=== PATIENT | male | born 1970 | race Caucasian/White ===

== ENCOUNTER → 2017-07-14 | Outpatient (CLI) | payer OTHER | LOC: LAB 09:28 | DX: Z00.00 Encounter for general adult medical examination without abnormal findings (principal); Z12.5 Encounter for screening for malignant neoplasm of prostate ==

== ENCOUNTER → 2019-07-18 | Outpatient (CLI) | payer OTHER ==
[2019-07-18 09:56] LABS: EOS # 0.2 (0.04-0.40); EOS % 3.4 % (0.0-4.0); HEMATOCRIT 43.5 % (42.0-52.0); HEMOGLOBIN 14.8 g/dL (13.5-18.0); MEAN CELL VOLUME 82 fl (78-100); MEAN CORPUSCULAR HEMOGLOBIN 28 pg (27-31); MEAN CORPUSCULAR HGB CONC 34 g/dL (33-37); MEAN PLATELET VOLUME 9.7 fl (7.4-10.4); MONO # 0.5 (0.20-0.80); NEU # 3.5 (1.40-6.50); PLATELET COUNT 207 K/mm3 (130-400); RED BLOOD COUNT 5.28 M/mm3 (4.20-5.60); RED CELL DISTRIBUTION WIDTH 13.9 % (11.5-14.5); WHITE BLOOD COUNT 6.2 K/mm3 (4.8-10.8)
[2019-07-18 10:04] LABS: ALBUMIN 4.3 g/dL (3.5-5.0); POTASSIUM 4.3 mmol/L (3.5-5.1); SODIUM 139 mmol/L (136-145)
[2019-07-18 10:05] LABS: CALCIUM 9.7 mg/dL (8.3-10.5)
[2019-07-18 10:06] LABS: GLUCOSE 130 mg/dL (75-110); TOTAL PROTEIN 7.1 g/dL (6.4-8.3)
[2019-07-18 10:07] LABS: CARBON DIOXIDE 25 mmol/L (22-29)
[2019-07-18 10:08] LABS: TOTAL BILIRUBIN 0.7 mg/dL (0.2-1.2)
[2019-07-18 10:12] LABS: AST-SGOT 23 U/L (5-34)
[2019-07-18 10:13] LABS: ALT/SGPT 35 U/L (0-55)
[2019-07-18 10:44] LABS: URINE APPEARANCE CLEAR; URINE BILIRUBIN NEGATIVE (NEGATIVE); URINE BLOOD 50 ery/uL (NEGATIVE); URINE COLOR YELLOW; URINE GLUCOSE NEGATIVE (NEGATIVE); URINE KETONE NEGATIVE (NEGATIVE); URINE LEUKOCYTE ESTERASE NEGATIVE (NEGATIVE); URINE MUCUS PRESENT (NOT PRESENT); URINE NITRATE NEGATIVE (NEGATIVE); URINE PROTEIN(semi-quant) TRACE mg/dL (NEGATIVE); URINE UROBILINOGEN NORMAL (NORMAL)
[2019-07-18 11:02] LABS: ERYTHROCYTE SEDIMENTATION RATE 3 mm/hr (0-15)
[2019-07-19 20:16] LABS: ANA SCREEN with REFLEX Negative (Negative)
== END ==
LOC: LAB 09:39
PROVIDERS: Physician Assistant
DX: Z12.5 Encounter for screening for malignant neoplasm of prostate (principal); E11.29 Type 2 diabetes mellitus with other diabetic kidney complication; E78.2 Mixed hyperlipidemia; G47.00 Insomnia, unspecified; M25.50 Pain in unspecified joint; M79.18 Myalgia, other site; R53.83 Other fatigue; K90.9 Intestinal malabsorption, unspecified

== ENCOUNTER → 2019-07-25 | Outpatient (CLI) | payer OTHER | LOC: LAB 14:45 | DX: K90.89 Other intestinal malabsorption (principal) ==

== ENCOUNTER → 2019-09-19 | Outpatient (CLI) | payer OTHER | LOC: LAB 11:44 | DX: K90.9 Intestinal malabsorption, unspecified (principal); E53.8 Deficiency of other specified B group vitamins ==

== ENCOUNTER → 2019-11-13 | Outpatient (CLI) | payer OTHER ==
[2019-11-13 16:34] LABS: ALBUMIN 4.2 g/dL (3.5-5.0)
[2019-11-13 16:36] LABS: CALCIUM 10.2 mg/dL (8.3-10.5)
[2019-11-13 16:39] LABS: TOTAL BILIRUBIN 0.7 mg/dL (0.2-1.2)
== END ==
LOC: LAB 16:07
PROVIDERS: Internal Medicine
DX: Z00.00 Encounter for general adult medical examination without abnormal findings (principal); K90.9 Intestinal malabsorption, unspecified; E55.9 Vitamin D deficiency, unspecified; E53.8 Deficiency of other specified B group vitamins

== ENCOUNTER → 2020-02-03 | Outpatient (CLI) | payer OTHER | LOC: LAB 10:07 | DX: Z00.00 Encounter for general adult medical examination without abnormal findings (principal); K90.9 Intestinal malabsorption, unspecified; E53.8 Deficiency of other specified B group vitamins; E55.9 Vitamin D deficiency, unspecified; E11.9 Type 2 diabetes mellitus without complications ==

== ENCOUNTER → 2020-03-09 | Outpatient (CLI) | payer OTHER | LOC: LAB 09:30 | DX: L82.1 Other seborrheic keratosis (principal) ==

== ENCOUNTER → 2020-08-21 | Outpatient (CLI) | payer BC ==
[2020-08-21 14:19] LABS: EOS # 0.1 (0.04-0.40); EOS % 2.3 % (0.0-4.0); HEMATOCRIT 38.3 % (42.0-52.0); HEMOGLOBIN 13.1 g/dL (13.5-18.0); LYMPH# 1.7 (1.50-4.00); MEAN CELL VOLUME 82 fl (78-100); MEAN CORPUSCULAR HEMOGLOBIN 28 pg (27-31); MEAN CORPUSCULAR HGB CONC 34 g/dL (33-37); MEAN PLATELET VOLUME 9.5 fl (7.4-10.4); MONO # 0.5 (0.20-0.80); NEU # 3.7 (1.40-6.50); PLATELET COUNT 187 K/mm3 (130-400); RED BLOOD COUNT 4.66 M/mm3 (4.20-5.60); RED CELL DISTRIBUTION WIDTH 13.3 % (11.5-14.5); WHITE BLOOD COUNT 6.1 K/mm3 (4.8-10.8)
[2020-08-21 14:26] LABS: ALBUMIN 4.4 g/dL (3.5-5.0)
[2020-08-21 14:27] LABS: CALCIUM 9.7 mg/dL (8.3-10.5)
[2020-08-21 14:28] LABS: TOTAL PROTEIN 6.9 g/dL (6.4-8.3)
[2020-08-21 14:30] LABS: TOTAL BILIRUBIN 0.8 mg/dL (0.2-1.2)
[2020-08-21 14:31] LABS: URINE APPEARANCE CLEAR; URINE COLOR YELLOW
[2020-08-21 14:32] LABS: URINE BILIRUBIN NEGATIVE (NEGATIVE); URINE BLOOD NEGATIVE (NEGATIVE); URINE GLUCOSE NEGATIVE (NEGATIVE); URINE KETONE NEGATIVE (NEGATIVE); URINE LEUKOCYTE ESTERASE NEGATIVE (NEGATIVE); URINE MUCUS PRESENT (NOT PRESENT); URINE NITRATE NEGATIVE (NEGATIVE); URINE PROTEIN(semi-quant) TRACE mg/dL (NEGATIVE); URINE UROBILINOGEN NORMAL (NORMAL)
[2020-08-21 15:16] LABS: ERYTHROCYTE SEDIMENTATION RATE 11 mm/hr (0-20)
[2020-08-21 22:21] LABS: TESTOSTERONE 387 ng/dL (221-716)
== END ==
LOC: LAB 14:06
PROVIDERS: Internal Medicine
DX: Z00.00 Encounter for general adult medical examination without abnormal findings (principal); Z12.5 Encounter for screening for malignant neoplasm of prostate; Z12.11 Encounter for screening for malignant neoplasm of colon; E53.8 Deficiency of other specified B group vitamins; E78.2 Mixed hyperlipidemia; M10.9 Gout, unspecified; K90.9 Intestinal malabsorption, unspecified; E11.29 Type 2 diabetes mellitus with other diabetic kidney complication

== ENCOUNTER → 2021-08-23 | Outpatient (CLI) | payer BC ==
[2021-08-23 17:00] LABS: BASO # 0.01 K/mm3 (0.02-0.10); EOS % 3.6 % (0.0-4.0); HEMATOCRIT 36.9 % (42.0-52.0); HEMOGLOBIN 12.7 g/dL (13.5-18.0); LYMPH# 2.13 K/mm3 (1.50-4.00); MEAN CELL VOLUME 84 fl (78-100); MEAN CORPUSCULAR HEMOGLOBIN 29 pg (27-31); MEAN CORPUSCULAR HGB CONC 34 g/dL (33-37); MEAN PLATELET VOLUME 9.1 fl (7.4-10.4); MONO # 0.41 K/mm3 (0.20-0.80); NEU # 2.81 K/mm3 (1.40-6.50); PLATELET COUNT 166 K/mm3 (130-400); RED BLOOD COUNT 4.38 M/mm3 (4.20-5.60); RED CELL DISTRIBUTION WIDTH 13.1 % (11.5-14.5); WHITE BLOOD COUNT 5.6 K/mm3 (4.8-10.8)
[2021-08-23 17:08] LABS: POTASSIUM 3.7 mmol/L (3.5-5.1)
[2021-08-23 17:09] LABS: CALCIUM 9.6 mg/dL (8.3-10.5)
[2021-08-23 17:10] LABS: TOTAL PROTEIN 6.7 g/dL (6.4-8.3)
[2021-08-23 17:12] LABS: TOTAL BILIRUBIN 0.6 mg/dL (0.2-1.2)
[2021-08-23 18:09] LABS: ERYTHROCYTE SEDIMENTATION RATE 22 mm/hr (0-20)
[2021-08-23 18:23] LABS: URINE APPEARANCE HAZY; URINE COLOR YELLOW
[2021-08-23 18:24] LABS: URINE BILIRUBIN NEGATIVE (NEGATIVE); URINE BLOOD TRACE (NEGATIVE); URINE GLUCOSE 50 mg/dL mg/dL (NEGATIVE); URINE KETONE NEGATIVE (NEGATIVE); URINE LEUKOCYTE ESTERASE NEGATIVE (NEGATIVE); URINE MUCUS PRESENT (NOT PRESENT); URINE NITRATE NEGATIVE (NEGATIVE); URINE PROTEIN(semi-quant) 1+ mg/dL (NEGATIVE); URINE UROBILINOGEN NORMAL (NORMAL)
== END ==
LOC: LAB 16:43
PROVIDERS: Internal Medicine
DX: R10.31 Right lower quadrant pain (principal)

== ENCOUNTER → 2021-08-26 | Outpatient (CLI) | payer BC | LOC: RAD 07:47 | DX: K76.0 Fatty (change of) liver, not elsewhere classified (principal); Z90.89 Acquired absence of other organs | CPT/HCPCS: Q9967 ==

== ENCOUNTER → 2021-09-13 | Outpatient (CLI) | payer BC ==
[2021-09-13 17:33] LABS: BASO # 0.01 K/mm3 (0.02-0.10); EOS % 3.5 % (0.0-4.0); HEMATOCRIT 41.2 % (42.0-52.0); HEMOGLOBIN 14.3 g/dL (13.5-18.0); LYMPH# 2.12 K/mm3 (1.50-4.00); MEAN CELL VOLUME 84 fl (78-100); MEAN CORPUSCULAR HEMOGLOBIN 29 pg (27-31); MEAN CORPUSCULAR HGB CONC 35 g/dL (33-37); MEAN PLATELET VOLUME 9.5 fl (7.4-10.4); MONO # 0.37 K/mm3 (0.20-0.80); NEU # 3.06 K/mm3 (1.40-6.50); PLATELET COUNT 195 K/mm3 (130-400); RED CELL DISTRIBUTION WIDTH 12.9 % (11.5-14.5); WHITE BLOOD COUNT 5.8 K/mm3 (4.8-10.8)
[2021-09-13 17:49] LABS: ALBUMIN 4.3 g/dL (3.5-5.0)
[2021-09-13 17:50] LABS: CALCIUM 10.1 mg/dL (8.3-10.5)
[2021-09-13 17:51] LABS: TOTAL PROTEIN 7.4 g/dL (6.4-8.3)
[2021-09-13 17:53] LABS: TOTAL BILIRUBIN 0.7 mg/dL (0.2-1.2)
[2021-09-13 17:58] LABS: MAGNESIUM 1.53 mg/dL (1.60-2.60)
== END ==
LOC: LAB 17:22
PROVIDERS: Internal Medicine
DX: Z00.00 Encounter for general adult medical examination without abnormal findings (principal); Z12.5 Encounter for screening for malignant neoplasm of prostate

== ENCOUNTER → 2024-01-01 | Outpatient (CLI) | payer BC | LOC: LAB 15:08 | DX: E78.2 Mixed hyperlipidemia (principal) ==

== ENCOUNTER → 2024-07-29 | Day surgery (SDC) | payer BC | END | disposition home or self-care (01) | LOC: MSO 05-06 14:26 | DX: Z12.11 Encounter for screening for malignant neoplasm of colon (principal) | CPT/HCPCS: 00812; J2704; J7120 ==

== ENCOUNTER → 2024-08-19 | Outpatient (CLI) | payer BC ==
[2024-08-19 11:40] LABS: BASO # 0.01 K/mm3 (0.02-0.10); EOS # 0.15 K/mm3 (0.04-0.40); EOS % 2.8 % (0.0-4.0); HEMATOCRIT 39.6 % (42.0-52.0); HEMOGLOBIN 14.1 g/dL (13.5-18.0); LYMPH# 2.27 K/mm3 (1.50-4.00); MEAN CELL VOLUME 81 fl (78-100); MEAN CORPUSCULAR HEMOGLOBIN 29 pg (27-31); MEAN CORPUSCULAR HGB CONC 36 g/dL (33-37); MEAN PLATELET VOLUME 9.4 fl (7.4-10.4); MONO # 0.31 K/mm3 (0.20-0.80); NEU # 2.57 K/mm3 (1.40-6.50); PLATELET COUNT 168 K/mm3 (130-400); RED BLOOD COUNT 4.87 M/mm3 (4.20-5.60); RED CELL DISTRIBUTION WIDTH 13.7 % (11.5-14.5); WHITE BLOOD COUNT 5.3 K/mm3 (4.8-10.8)
[2024-08-19 11:48] LABS: ALBUMIN 4.4 g/dL (3.5-5.0)
[2024-08-19 11:49] LABS: CALCIUM 9.8 mg/dL (8.3-10.5)
[2024-08-19 11:51] LABS: TOTAL PROTEIN 7.7 g/dL (6.4-8.3)
[2024-08-19 11:52] LABS: URINE APPEARANCE CLEAR (CLEAR); URINE COLOR YELLOW (YELLOW)
[2024-08-19 11:53] LABS: PH-URINE 5.5 (5.0 - 8.0); TOTAL BILIRUBIN 0.9 mg/dL (0.2-1.2); URINE BILIRUBIN 1+ (NEGATIVE); URINE BLOOD TRACE (NEGATIVE); URINE GLUCOSE 2+ (NEGATIVE); URINE KETONE 2+ (NEGATIVE); URINE LEUKOCYTE ESTERASE NEGATIVE (NEGATIVE); URINE MUCUS PRESENT (NOT PRESENT); URINE NITRATE NEGATIVE (NEGATIVE); URINE PROTEIN(semi-quant) 2+ (NEGATIVE)
[2024-08-19 11:58] LABS: MAGNESIUM 1.36 mg/dL (1.60-2.60)
[2024-08-19 23:57] LABS: FOLLICLE STIMULATING HORMONE 9.6 mIU/mL (1.0-12.0); LUTENIZING HORMONE 5.3 mIU/mL (0.6-12.1)
== END ==
LOC: RAD 11:21
PROVIDERS: Internal Medicine
DX: M79.645 Pain in left finger(s) (principal); K50.90 Crohn's disease, unspecified, without complications; M10.9 Gout, unspecified; E78.2 Mixed hyperlipidemia; E11.9 Type 2 diabetes mellitus without complications; K90.9 Intestinal malabsorption, unspecified; E23.0 Hypopituitarism

== ENCOUNTER → 2024-08-26 | Outpatient (CLI) | payer BC ==
[2024-08-27 00:57] LABS: INSULIN 25 uIU/mL (2-23)
== END ==
LOC: LAB 11:42
PROVIDERS: Internal Medicine
DX: E11.9 Type 2 diabetes mellitus without complications (principal)